=== PATIENT | female | born 1985 | race African-American/Black ===

== ENCOUNTER 2017-10-26 16:08 | Emergency (ER) | payer SELFPAY, BC | END 2017-10-26 18:30 | disposition left against medical advice (07) | LOC: FTE 18:30 | DX: Z53.21 Procedure and treatment not carried out due to patient leaving prior to being seen by health care provider (principal) ==

== ENCOUNTER 2017-10-27 05:17 | Emergency (ER) | payer SELFPAY | END 2017-10-27 06:30 | disposition left against medical advice (07) | LOC: E/R 05:17 | DX: Z53.21 Procedure and treatment not carried out due to patient leaving prior to being seen by health care provider (principal) ==

== ENCOUNTER 2017-12-05 10:37 | Inpatient (IN) | payer OTHER ==
[2017-12-05 11:13] LABS: ADD UMIC NO; UR ASCORBIC ACID NEGATIVE (NEGATIVE); UR BILIRUBIN (Dip) NEGATIVE (NEGATIVE); UR BLOOD (Dip) NEGATIVE (NEGATIVE); UR CLARITY CLEAR (CLEAR); UR COLOR STRAW (YELLOW); UR GLUCOSE (Dip) 3+ mg/dL (NEGATIVE); UR KETONES (Dip) NEGATIVE (NEGATIVE); UR LEUKOCYTE ESTERASE (Dip) NEGATIVE Leu/ul (NEGATIVE); UR NITRITE (Dip) NEGATIVE (NEGATIVE); UR SPECIFIC GRAVITY (Dip) 1.036 (1.003-1.030); UR TOTAL PROTEIN (Dip) NEGATIVE (NEGATIVE); UR UROBILINOGEN (Dip) NEGATIVE (NEGATIVE)
[2017-12-05] MEDS: SOD CHLORIDE 0.9% 1,000 ML IV ×3 (11:17→18:36)
[2017-12-05] MEDS: ONDANSETRON 4 MG INJ IV (11:17)
[2017-12-05] MEDS: KETOROLAC 30 MG INJ IV (11:22)
[2017-12-05 11:31] LABS: ADD MAN DIFF? NO
[2017-12-05 11:33] LABS: WHITE BLOOD COUNT 5.1 10^3/ul (4.8-10.8)
[2017-12-05 11:33] LABS: BASOPHILS % 0.4 % (0.0-2.0); EOSINOPHILS % 0.2 % (0.0-7.0); HEMATOCRIT 39.7 % (37.0-47.0); HEMOGLOBIN 12.6 g/dl (12.0-16.0); LYMPHOCYTES # 1.7 10^3/ul (0.8-2.9); LYMPHOCYTES % 33.6 % (15.0-51.0); MEAN CORPUSCULAR HEMOGLOBIN 24.8 pg (29.0-33.0); MEAN CORPUSCULAR HGB CONC 31.7 g/dl (32.0-37.0); MEAN CORPUSCULAR VOLUME 78.1 fl (82.0-101.0); MEAN PLATELET VOLUME 11.3 fl (7.4-10.4); MONOCYTE # 0.4 10^3/ul (0.3-0.9); MONOCYTES % 7.1 % (0.0-11.0); NEUTROPHILS % 58.5 % (39.0-77.0); PLATELET COUNT 377 10^3/UL (140-415); RED BLOOD COUNT 5.08 10^6/ul (4.20-5.40); RED CELL DISTRIBUTION WIDTH 14.6 % (11.5-14.5)
[2017-12-05] MEDS: DIPHENHYDRAMINE 50 MG INJ IV (11:34)
[2017-12-05] MEDS: morphine 4 MG/ML VIAL IV ×2 (11:34→13:07)
[2017-12-05 11:51] LABS: ALANINE AMINOTRANSFERASE 38 IU/L (13-69); ALBUMIN 5.1 g/dl (3.3-4.9); ALBUMIN/GLOBULIN RATIO 1.21; ALKALINE PHOSPHATASE 91 IU/L (42-121); ANION GAP 20 (8-16); ASPARTATE AMINO TRANSFERASE 25 IU/L (15-46); BILIRUBIN,INDIRECT 0.2 mg/dl (0-1.1); BILIRUBIN,TOTAL 0.2 mg/dl (0.2-1.3); BLOOD UREA NITROGEN 10 mg/dl (7-20); CALCIUM 9.8 mg/dl (8.4-10.2); CARBON DIOXIDE 23 mmol/L (21-31); CHLORIDE 102 mmol/L (97-110); CREATININE 0.63 mg/dl (0.44-1.00); GLUCOSE 388 mg/dl (70-220); LIPASE 896 U/L (23-300); POTASSIUM 3.9 mmol/L (3.5-5.1); SODIUM 141 mmol/L (135-144); TOTAL PROTEIN 9.3 g/dl (6.1-8.1)
[2017-12-05 13:02] LABS: ETHANOL < 10.0 mg/dl
[2017-12-05] MEDS ORDERED: ONDANSETRON 4 MG INJ IV ×2 (17:00→18:00)
[2017-12-05] MEDS ORDERED: ACETAMINOPHEN 325 MG TAB PO ×2 (17:00→18:00)
[2017-12-05 17:53] LABS: AMPHETAMINE/METHAMPHETAMINE Negative (NEGATIVE); BARBITURATES Negative (NEGATIVE); BENZODIAZEPINES Negative (NEGATIVE); CANNABINOIDS Positive (NEGATIVE); COCAINE Negative (NEGATIVE); OPIATES Positive (NEGATIVE)
[2017-12-05] MEDS ORDERED: GLUCAGON 1 MG INJ IM (18:00)
[2017-12-05] MEDS ORDERED: MAGNESIUM HYDROXIDE 30ML CUP PO (18:00)
[2017-12-05] MEDS ORDERED: NACL 0.9% 3 ML SYG IV (18:00)
[2017-12-05] MEDS ORDERED: DEXTROSE 50% 50 ML SYRINGE IV ×2 (18:00)
[2017-12-05] MEDS ORDERED: METOCLOPRAMIDE 10 MG INJ IV (18:00)
[2017-12-05] MEDS ORDERED: DOCUSATE SODIUM 100 MG CAP PO (18:00)
[2017-12-05] MEDS ORDERED: BISACODYL (EC) 5 MG TAB PO (18:00)
[2017-12-05] MEDS ORDERED: BISACODYL 10 MG SUPP PR (18:00)
[2017-12-05] MEDS ORDERED: ONDANSETRON 4 MG TAB PO (18:00)
[2017-12-05] MEDS ORDERED: GLUCOSE GEL 15 GRAM TUBE PO ×2 (18:00)
[2017-12-05] MEDS ORDERED: GLUCOSE GEL 15 GRAM TUBE BUCCAL (18:00)
[2017-12-05 18:11] LABS: HEMOGLOBIN A1C 12.7 % (0-5.9)
[2017-12-05] MEDS ORDERED: NICOTINE (21 MG/24 HR) PATCH TRANSDERM (19:00)
[2017-12-05] MEDS ORDERED: NICOTINE POLACRILEX 2 MG GUM BUCCAL (19:00)
[2017-12-05] MEDS ORDERED: INSULIN GLARGINE [LANtus] 3 ML PEN SC (20:00)
[2017-12-05] MEDS ORDERED: INSULIN ASPART [NOVOLOG] 3 ML PEN SC ×2 (21:00)
[2017-12-06] MEDS ORDERED: ACCU-CHEK XX ×2 (02:00)
[2017-12-06] MEDS ORDERED: INSULIN ASPART [NOVOLOG] 3 ML PEN SC (08:15)
[2017-12-06] MEDS ORDERED: ENOXAPARIN 40 MG/0.4 ML SYG SC (09:00)
== END 2017-12-05 19:45 | disposition left against medical advice (07) | DRG 440 ==
LOC: FTE 10:37 → MS2 16:44
DX: K85.90 Acute pancreatitis without necrosis or infection, unspecified (principal); K43.9 Ventral hernia without obstruction or gangrene; R73.9 Hyperglycemia, unspecified
CPT/HCPCS: 74176; 76705; 80053; 80306; 80307; 81003; 81025; 82962; 83036; 83690; 85025

== ENCOUNTER 2018-06-08 22:15 | Emergency (ER) | payer MEDICAID ==
[2018-06-08] MEDS: SOD CHLORIDE 0.9% 520 ML IV (22:48)
[2018-06-08] MEDS: ONDANSETRON 4 MG INJ IV (22:48)
[2018-06-08] MEDS: HYDROmorphONE 1 MG/ML SYG IV (22:48)
[2018-06-08 22:49] LABS: ADD MAN DIFF? NO
[2018-06-08 22:50] LABS: BASOPHILS % 0.3 % (0.0-2.0); EOSINOPHILS % 0.5 % (0.0-7.0); HEMATOCRIT 30.1 % (37.0-47.0); HEMOGLOBIN 9.1 g/dl (12.0-16.0); LYMPHOCYTES % 30.9 % (15.0-51.0); MEAN CORPUSCULAR HEMOGLOBIN 23.2 pg (29.0-33.0); MEAN CORPUSCULAR HGB CONC 30.2 g/dl (32.0-37.0); MEAN CORPUSCULAR VOLUME 76.8 fl (82.0-101.0); MEAN PLATELET VOLUME 10.6 fl (7.4-10.4); MONOCYTE # 0.5 10^3/ul (0.3-0.9); MONOCYTES % 7.7 % (0.0-11.0); NEUTROPHIL # 3.9 10^3/ul (1.6-7.5); NEUTROPHILS % 60.3 % (39.0-77.0); PLATELET COUNT 198 10^3/UL (140-415); RED BLOOD COUNT 3.92 10^6/ul (4.20-5.40); RED CELL DISTRIBUTION WIDTH 15.7 % (11.5-14.5)
[2018-06-08 22:50] LABS: WHITE BLOOD COUNT 6.4 10^3/ul (4.8-10.8)
[2018-06-08 23:07] LABS: ADD UMIC NO; UR ASCORBIC ACID 20 mg/dL (NEGATIVE); UR BILIRUBIN (Dip) NEGATIVE (NEGATIVE); UR BLOOD (Dip) NEGATIVE (NEGATIVE); UR CLARITY CLEAR (CLEAR); UR COLOR STRAW (YELLOW); UR GLUCOSE (Dip) 3+ mg/dL (NEGATIVE); UR KETONES (Dip) NEGATIVE (NEGATIVE); UR LEUKOCYTE ESTERASE (Dip) NEGATIVE Leu/ul (NEGATIVE); UR NITRITE (Dip) NEGATIVE (NEGATIVE); UR SPECIFIC GRAVITY (Dip) 1.028 (1.003-1.030); UR TOTAL PROTEIN (Dip) NEGATIVE (NEGATIVE); UR UROBILINOGEN (Dip) 1+ mg/dL (NEGATIVE)
[2018-06-08 23:11] LABS: ANION GAP 7 (5-13); BLOOD UREA NITROGEN 13 mg/dl (7-20); CALCIUM 8.4 mg/dl (8.4-10.2); CARBON DIOXIDE 24 mmol/L (21-31); CHLORIDE 107 mmol/L (97-110); GLUCOSE 335 mg/dl (70-220); MAGNESIUM 1.8 mg/dl (1.7-2.5); PHOSPHORUS 3.7 mg/dl (2.5-4.9); SODIUM 138 mmol/L (135-144)
[2018-06-08 23:14] LABS: POTASSIUM 3.7 mmol/L (3.5-5.1)
[2018-06-09 00:06] LABS: Allen Test ACCEPTAB; MODE ROOM AIR; MetHgb Venous 0.3 %; Sample Type Blood venous; Site VENOUS LINE; Venous Fraction OxyHgb 84.2 %; Venous Oxygen Sat 90.8 mmHG (55.0-75.0); Venous Total Hemglobin 9.2 g/dl
== END 2018-06-09 01:43 | disposition home or self-care (01) ==
LOC: E/R 06-09 01:43
DX: E11.65 Type 2 diabetes mellitus with hyperglycemia (principal); R10.9 Unspecified abdominal pain; F17.210 Nicotine dependence, cigarettes, uncomplicated; Z79.4 Long term (current) use of insulin
CPT/HCPCS: 36415; 74176; 80048; 81003; 81025; 82803; 82962; 83735; 84100; 85025; 96374; 96375; 99285-25

== ENCOUNTER 2018-06-10 04:33 | Emergency (ER) | payer MEDICAID ==
[2018-06-10] MEDS: OXYCODONE/ACETAMINOPHEN (5/325) TAB PO (06:30)
== END 2018-06-10 06:55 | disposition home or self-care (01) ==
LOC: E/R 04:33
DX: K45.8 Other specified abdominal hernia without obstruction or gangrene (principal); E11.9 Type 2 diabetes mellitus without complications; F17.210 Nicotine dependence, cigarettes, uncomplicated; Z72.89 Other problems related to lifestyle; Z79.4 Long term (current) use of insulin
CPT/HCPCS: 99282; Z7502

== ENCOUNTER 2018-07-08 10:33 | Emergency (ER) | payer OTHER ==
[2018-07-08] MEDS: OXYCODONE/ACETAMINOPHEN (5/325) TAB PO (11:10)
== END 2018-07-08 11:20 | disposition home or self-care (01) ==
LOC: E/R 10:33
DX: G89.4 Chronic pain syndrome (principal); F11.20 Opioid dependence, uncomplicated; E11.9 Type 2 diabetes mellitus without complications; Z79.4 Long term (current) use of insulin; Z87.891 Personal history of nicotine dependence
CPT/HCPCS: 99283; Z7502

== ENCOUNTER 2018-07-30 09:55 | Emergency (ER) | payer OTHER ==
[2018-07-30 11:16] LABS: URINE BLOOD (Dip) POC Trace-intact (NEGATIVE); URINE KETONES (Dip) POC Negative (NEGATIVE); URINE LEUKOCYTE EST (Dip) POC Negative (NEGATIVE); URINE NITRITE (Dip) POC Negative (NEGATIVE); URINE TOTAL PROTEIN POC Negative (NEGATIVE)
[2018-07-30 11:16] LABS: URINE PH (Dip) POC 5.5 (5.0-8.5)
[2018-07-30] MEDS ORDERED: SOD CHLORIDE 0.9% 1,000 ML IV (11:32)
[2018-07-30] MEDS ORDERED: INSULIN LISPRO 100 UNIT/ML VIAL SC (12:00)
== END 2018-07-30 11:56 | disposition left against medical advice (07) ==
LOC: FTE 09:55
DX: R10.9 Unspecified abdominal pain (principal); E11.9 Type 2 diabetes mellitus without complications; F17.210 Nicotine dependence, cigarettes, uncomplicated; Z79.4 Long term (current) use of insulin
CPT/HCPCS: 81003; 82962; 99282-25

== ENCOUNTER 2018-11-11 10:24 | Emergency (ER) | payer OTHER ==
[2018-11-11] MEDS ORDERED: INSULIN LISPRO 100 UNIT/ML VIAL SC (17:30)
[2018-11-11] MEDS ORDERED: IBUPROFEN 800 MG TAB PO (17:30)
== END 2018-11-11 17:33 | disposition left against medical advice (07) ==
LOC: E/R 10:24
DX: R07.9 Chest pain, unspecified (principal); E11.9 Type 2 diabetes mellitus without complications; R10.84 Generalized abdominal pain; Z79.4 Long term (current) use of insulin; Z87.891 Personal history of nicotine dependence
CPT/HCPCS: 82962; 93005; 99284-25